=== PATIENT | female | born 1960 | race African-American/Black ===

== ENCOUNTER 2018-03-08 10:57 | Emergency (ER) | payer SELFPAY ==
[~2018-03-08] VITALS: Ht 167.6 cm; Wt 90.0 kg
[2018-03-08] MEDS ORDERED: ATARAX,VISTARIL50 MG PO (11:15)
[2018-03-08 12:20] VITALS: BP 174/90
== END 2018-03-08 11:40 | disposition home or self-care (01) ==
LOC: EME 10:57
DX: L25.9 Unspecified contact dermatitis, unspecified cause (principal)
CPT/HCPCS: 99281; 99283